=== PATIENT | male | born 1980 | race Two or more races ===

== ENCOUNTER 2020-05-09 15:55 | Inpatient (IN) ==
[2020-05-09] MEDS ORDERED: LEVSIN/MAALOX/LIDOC VISC PO ONE (17:05)
[2020-05-09 17:07] LABS: BASOPHILS # (AUTO) 0.1 X10^3/uL (0.0-0.1); EOSINOPHILS # (AUTO) 0.3 x10^3/uL (0.0-0.2); MONOCYTES # (AUTO) 0.4 x10^3/uL (0.3-0.8); NEUTROPHILS % (AUTO) 63.4 % (42.0-75.0)
[2020-05-09] MEDS ORDERED: PROTONIX TAB 40 MG PO ONE ×2 (17:11→17:25)
[2020-05-09 17:15] LABS: ALBUMIN 3.6 g/dL (3.4-5.0); ALKALINE PHOSPHATASE 150 Units/L (46-116); AMYLASE 196 Units/L (25-115); BLOOD UREA NITROGEN 12 mg/dL (7-18); CALCIUM 8.1 mg/dL (8.5-10.1); CARBON DIOXIDE 16.4 mmol/L (21-32); CHLORIDE 94 mmol/L (98-107); COR NA(FOR HYPERGLY) 138 mmol/L (136-145); CREATININE 0.78 mg/dL (0.70-1.30); SODIUM 130 mmol/L (136-145); TOTAL PROTEIN 7.6 g/dL (6.4-8.2); eGFR NON BLACK RACES > 60 (>60)
--- NOTE | 2020-05-09 17:15 | DR.ABDMALE ---
HPI Time seen Time Seen by Provider: 05/09/20 17:00 PCP Primary Care Physician: NFD Complaint Chief Complaint Doctors Comments: A 40 y/o male presenting with c/o epigastric pain onset about 3 hrs. SEAMLESS [employer] RO[employer] in the ED. It was spontaneous and without radiation. There is noassociated nausea or vomiting. Chief Complaint:: PT. C/O EPIGASTRIC PAIN AND NAUSEA. ONSET OF 3 HOURS AGO. COVID-19 Coronavirus risk:travel/contact w/high risk person: No Has patient experienced Coronavirus symptoms: No Reviewed Nurses Notes Review: Yes Mode of arrival Mode of Arrival: Ambulatory Timing Onset of Chief Complaint: 05/09/20 Duration Duration: Constant How lon Duration: Hours Location Location: Epigastric Quality Quality: Colicky and Sharp Context History of: None Modifying factors Worsening Factors: Nothing Improving Factors: Nothing Associated signs and symptoms Associated Signs and Symptoms: None PMH PMH Past Medical History: No Past Surgical History: No Surgical History: No History Family History History of Family Medical Conditions: No Social History Does patient currently use any type of tobacco product: No Have you used tobacco products in the last 12 months: No Type of Tobacco Use: None Does any household member use tobacco: No Alcohol Use: Occasionally Lives With: Family Lives Where: Home Travel Risk Coronavirus risk:travel/contact w/high risk person: No Has patient experienced Coronavirus symptoms: No Infectious screening In the last 2 months have you had wt loss of >10#?: NO Have you had fever, night sweats or hemotysis?: No Have you traveled outside the country in the last 6 months?: No Isolation: Standard ROS Review of Systems Constitutional: No Symptoms Reported Eyes: No Symptoms Reported ENTM: No Symptoms Reported Respiratoy: No Symptoms Reported Cardiovascular: No Symptoms Reported Gastrointestinal/Abdominal: Abdominal Pain (epigastric) Genitourinary: No Symptoms Reported Neurological: No Symptoms Reported Musculoskeletal: No Symptoms Reported Integumentary: No Symptoms Reported Hematologic/Lymphatic: No Symptoms Reported Endocrine: No Symptoms Reported Psychiatric: No Symptoms Reported PE Vital Signs Vital Signs: Temp Pulse Resp BP Pulse Ox 05/09/20 18:00 79 18 99 05/09/20 17:56 18 05/09/20 17:28 17 05/09/20 17:00 79 18 131/71 98 05/09/20 16:00 98.2 F 81 17 134/72 95 General Limitations: No Limitations General Appearance: Alert and In No Apparent Distress Head Head Exam: Normal Inspection, Atraumatic and Normocephalic Eyes Eye exam: Normal Appearance and EOMI ENT ENT Exam: Normal Exam, Normal Oropharynx, Normal External Ear Exam and Mucous Membranes Moist Neck Neck Exam: Normal Inspection, Full ROM and Trachea Midline Chest Chest Inspection: Normal Inspection and Symmetric Chest Wall Rise Respiratory Respiratory Exam: Normal Lung Sounds Bilat Cardiovascular Cardiovascular Exam: Regular Rate, Normal Rhythm, Normal Heart Sounds, +S1 and +S2 Abdominal Exam Abdominal Exam: Normal Inspection, Normal Bowel Sounds, Soft and Tenderness; negative Distention, Guarding, Rebound, Rigidity, Dimnished Bowel Sounds, Hyperactive Bowel Sounds, Hypoactive Bowel Sounds, Organomegaly, Trauma, Incision, Ascites, Mass, Bruit, Pulsatile Mass and Hernia Abdominal Tenderness: Epigastrium Rectal Rectal Exam: Deferred Back Back Exam: Normal Inspection and Full ROM Extremeties Extremities Exam: Normal Inspection and Full ROM Exam: Male: Deferred Neurologic Neurological Exam: Alert and Oriented X3 Psychiatric Psychiatric Exam: Normal Affect and Normal Mood Skin Skin Exam: Dry and Normal Color COURSE Reevaluation 1st: Improved Education/Counseling Education/Counseling: Patient, Education and Counseling Educated On: Treatment, Diagnosis, Prognosis and Needs for Follow Up ROR Labs Reviewed Laboratory Results Reviewed?: Yes Result Diagrams: 05/09/20 16:49 05/09/20 16:49 Laboratory: WBC 8.3 X10^3/uL (3.6-10.0) 05/09/20 16:49 RBC 4.77 X10^6/uL (4.7-6.0) 05/09/20 16:49 Hgb 15.0 g/dL (13.5-18.0) 05/09/20 16:49 Hct 42.8 % (42.0-54.0) 05/09/20 16:49 MCV 89.6 fL (80.0-100.0) 05/09/20 16:49 MCH 31.4 pg (27.0-34.0) 05/09/20 16:49 MCHC 35.0 g/dL (33.0-35.0) 05/09/20 16:49 RDW 13.4 % (11.6-16.5) 05/09/20 16:49 Plt Count 189 X10^3/uL (150.0-450.0) 05/09/20 16:49 MPV 9.3 fL (7.4-11.0) 05/09/20 16:49 Neut % (Auto) 63.4 % (42.0-75.0) 05/09/20 16:49 Lymph % (Auto) 27.6 % (21.0-51.0) 05/09/20 16:49 [place] % (Auto) 4.7 % (0.0-13.0) 05/09/20 16:49 Eos % (Auto) 3.3 % (0.9-2.9) H 05/09/20 16:49 Baso % (Auto) 1.0 % (0.2-1.0) 05/09/20 16:49 Neut # (Auto) 5.2 x10^3/uL (2.2-4.8) H 05/09/20 16:49 Lymph # (Auto) 2.3 X10^3/uL (1.3-2.9) 05/09/20 16:49 [place] # (Auto) 0.4 x10^3/uL (0.3-0.8) 05/09/20 16:49 Eos # (Auto) 0.3 x10^3/uL (0.0-0.2) H 05/09/20 16:49 Baso # (Auto) 0.1 X10^3/uL (0.0-0.1) 05/09/20 16:49 Absolute Nucleated RBC 0.1 /100WBC 05/09/20 16:49 Sodium 130 mmol/L (136-145) L 05/09/20 16:49 Corrected Sodium 138 mmol/L (136-145) 05/09/20 16:49 Potassium 3.7 mmol/L (3.5-5.1) 05/09/20 16:49 Chloride 94 mmol/L (98-107) L 05/09/20 16:49 Carbon Dioxide 16.4 mmol/L (21-32) L 05/09/20 16:49 BUN 12 mg/dL (7-18) 05/09/20 16:49 Creatinine 0.78 mg/dL (0.70-1.30) 05/09/20 16:49 Est GFR (MDRD) Af Amer > 60 (>60) 05/09/20 16:49 Est GFR (MDRD) Non-Af > 60 (>60) 05/09/20 16:49 Glucose 415 mg/dL (65-99) H 05/09/20 16:49 Calcium 8.1 mg/dL (8.5-10.1) L 05/09/20 16:49 Corrected Calcium TNP 05/09/20 16:49 Total Bilirubin 0.70 mg/dL (0.2-1.0) 05/09/20 16:49 AST 33.6 Units/L (15-37) 05/09/20 16:49 ALT 32 Units/L (12-78) 05/09/20 16:49 Alkaline Phosphatase 150 Units/L (46-116) H 05/09/20 16:49 Total Protein 7.6 g/dL (6.4-8.2) 05/09/20 16:49 Albumin 3.6 g/dL (3.4-5.0) 05/09/20 16:49 Globulin 4.0 g/dL (2.5-4.5) 05/09/20 16:49 Albumin/Globulin Ratio 0.9 Ratio (1.1-2.1) L 05/09/20 16:49 Amylase 196 Units/L (25-115) H 05/09/20 16:49 Lipase 1782 Units/L (73-393) H 05/09/20 16:49 Specimen Type Random urine 05/09/20 17:43 Urine Color Yellow (YELLOW) 05/09/20 17:43 Urine Appearance Clear (CLEAR) 05/09/20 17:43 Urine pH 7.0 (5.0 - 8.0) 05/09/20 17:43 Ur Specific [place] 1.010 (1.000-1.030) 05/09/20 17:43 Urine Protein Negative (NEGATIVE) 05/09/20 17:43 Urine Glucose (UA) 4+ (NEGATIVE) 05/09/20 17:43 Urine Ketones 1+ (NEGATIVE) 05/09/20 17:43 Urine Occult Blood Negative (NEGATIVE) 05/09/20 17:43 Urine Nitrite Negative (NEGATIVE) 05/09/20 17:43 Urine Bilirubin Negative (NEGATIVE) 05/09/20 17:43 Urine Urobilinogen Normal (NORMAL) 05/09/20 17:43 Ur Leukocyte Esterase Negative (NEGATIVE) 05/09/20 17:43 Urine RBC 0-2 /HPF (0-3) 05/09/20 17:43 Urine WBC None seen /HPF (0-5) 05/09/20 17:43 Ur Squamous Epith Cells Rare /HPF (NEGATIVE) 05/09/20 17:43 Amorphous Sediment Trace /HPF (NEGATIVE) 05/09/20 17:43 Urine Bacteria Negative /HPF (NEGATIVE) 05/09/20 17:43 Ur Culture Indicated? No/not indicated 05/09/20 17:43 Opioid Opioid Risk Tool Age (Roberto box if 16-45): Yes History of Preadolescent Sexual Abuse: No Total: 1 Total Score Risk Category: Low Risk Copyright: Juvenal MOSQUERA predicting aberrant behaviors Diagnosis Discharge Problem: Acute hyponatremia Acute pancreatitis Qualifiers: Pancreatitis type: other Acute pancreatitis complication: unspecified Qualified Code(s): K85.80 - Other acute pancreatitis without necrosis or infection ADDITIONAL NOTES Additional Notes Additional Notes: Name: CHUCK CURRY : 1980 Sex: M Location: ER Order Number(s): [id number] Procedure(s):ABDOMEN/PELVIS WITH CON Ordering Physician: JULIA BARBER Primary Care: Brittany CEE Service Date: 05/09/20 Service Time: 1729 CT abdomen and pelvis with contrast Indication: Epigastric pain with nausea. TECHNIQUE Helical images through the abdomen and pelvis after IV and oral contrast. Coronal and sagittal reformats provided. FINDINGS Limited images through the lower chest demonstrate no acute abnormality. Review of bone windows demonstrate no destructive osseous lesion. Abdomen: The liver is mildly low in attenuation. The gallbladder, spleen, adrenal glands and kidneys demonstrate no acute abnormality. Vasculature is normal. Appendix is normal. Colon is normal. There is mild stranding about the pancreas which seems mildly prominent. Minimal stranding about the duodenum which is otherwise normal noted. Pelvis: Urinary bladder and rectum are normal. Prostate gland is normal IMPRESSION 1. Acute pancreatitis favored, based on mild peripancreatic stranding, particularly near the head of the pancreas. 2. Mild stranding about the duodenum is likely reactive to the pancreas process, but duodenitis not entirely excluded 3. No other acute abnormality Electronically signed by: DAVIN ROGER (May 09, 2020 20:17:58)
[2020-05-09 17:20] LABS: LIPASE 1782 Units/L (73-393)
[2020-05-09] MEDS ORDERED: LEVSIN/MAALOX/LIDOC VISC ONE (17:25)
[2020-05-09 17:28] LABS: EOSINOPHILS % (AUTO) 3.3 % (0.9-2.9); HEMATOCRIT 42.8 % (42.0-54.0); LYMPHOCYTES # (AUTO) 2.3 X10^3/uL (1.3-2.9); LYMPHOCYTES % (AUTO) 27.6 % (21.0-51.0); MEAN CORPUSCULAR HEMOGLOBIN 31.4 pg (27.0-34.0); MEAN CORPUSCULAR VOLUME 89.6 fL (80.0-100.0); MEAN PLATELET VOLUME 9.3 fL (7.4-11.0); MONOCYTES % (AUTO) 4.7 % (0.0-13.0); NEUTROPHILS # (AUTO) 5.2 x10^3/uL (2.2-4.8); PLATELET COUNT 189 X10^3/uL (150.0-450.0); RED BLOOD COUNT 4.77 X10^6/uL (4.7-6.0); RED CELL DISTRIBUTION WIDTH 13.4 % (11.6-16.5); WHITE BLOOD COUNT 8.3 X10^3/uL (3.6-10.0)
[2020-05-09] MEDS ORDERED: NS 1000 ML 1,000 ML IV ONE (17:48)
[2020-05-09] MEDS ORDERED: TORADOL 30 MG VIAL IVP ONE (17:48)
[2020-05-09] MEDS ORDERED: TORADOL 30 MG VIAL ONE (17:50)
[2020-05-09] MEDS ORDERED: NS 1000 ML 1,000 ML ONE ×2 (17:50→22:29)
[2020-05-09 18:10] LABS: ALANINE AMINOTRANSFERASE 32 Units/L (12-78)
[2020-05-09 18:21] LABS: BILIRUBIN,URINE NEGATIVE (NEGATIVE); BLOOD/HEMOGLOBIN,URINE NEGATIVE (NEGATIVE); GLUCOSE, URINE 4+ (NEGATIVE); KETONES,URINE 1+ (NEGATIVE); LEUKOCYTE ESTERASE ,URINE NEGATIVE (NEGATIVE); NITRITES,URINE NEGATIVE (NEGATIVE); PROTEIN,URINE NEGATIVE (NEGATIVE); UROBILINOGEN,URINE NORMAL (NORMAL)
[2020-05-09 18:30] LABS: AMORPHOUS SEDIMENT,UR TRACE /HPF (NEGATIVE); APPEARANCE,URINE CLEAR (CLEAR); BACTERIA,URINE NEGATIVE /HPF (NEGATIVE); COLOR,URINE YELLOW (YELLOW); RBC,URINE 0-2 /HPF (0-3); SQUAMOUS EPITHELIAL CELL,UR RARE /HPF (NEGATIVE)
[2020-05-09 18:52] LABS: ASPARTATE AMINO TRANSFERASE 33.6 Units/L (15-37)
--- NOTE | 2020-05-09 20:19 | CT ---
CT abdomen and pelvis with contrastIndication: Epigastric pain with nausea.TECHNIQUEHelical images through the abdomen and pelvis after IV and oral contrast. Coronal and sagittal reformats provided.FINDINGSLimited images through the lower chest demonstrate no acute abnormality. Review of bone windows demonstrate no destructive osseous lesion.Abdomen: The liver is mildly low in attenuation. The gallbladder, spleen, adrenal glands and kidneys demonstrate no acute abnormality. Vasculature is normal. Appendix is normal. Colon is normal.There is mild stranding about the pancreas which seems mildly prominent. Minimal stranding about the duodenum which is otherwise normal noted.Pelvis: Urinary bladder and rectum are normal. Prostate gland is normalIMPRESSION1. Acute pancreatitis favored, based on mild peripancreatic stranding, particularly near the head of the pancreas.2. Mild stranding about the duodenum is likely reactive to the pancreas process, but duodenitis not entirely excluded3. No other acute abnormalityElectronically signed by: DAVIN ROGER (May 09, 2020 20:17:58)
[2020-05-09] MEDS ORDERED: ZOFRAN INJ 4 MG VIAL IVP PRN (21:55)
[2020-05-09] MEDS: NS 1000 ML 1,000 ML IV SCH (22:31)
[2020-05-09 23:18] VITALS: BMI 34.9
[2020-05-10] MEDS: NS 1000 ML 1,000 ML IV SCH ×3 (05:35→22:40)
[2020-05-10 06:18] LABS: ALANINE AMINOTRANSFERASE 33 Units/L (12-78); ALBUMIN 3.1 g/dL (3.4-5.0); ALKALINE PHOSPHATASE 113 Units/L (46-116); AMYLASE 204 Units/L (25-115); ASPARTATE AMINO TRANSFERASE < 6 Units/L (15-37); BLOOD UREA NITROGEN 10 mg/dL (7-18); CALCIUM 7.9 mg/dL (8.5-10.1); CHLORIDE 101 mmol/L (98-107); COR CA(FOR HYPOALB) 8.6 mg/dL (8.5-10.1); COR NA(FOR HYPERGLY) 139 mmol/L (136-145); CREATININE 0.72 mg/dL (0.70-1.30); LIPASE 1319 Units/L (73-393); SODIUM 135 mmol/L (136-145); TOTAL PROTEIN 6.4 g/dL (6.4-8.2); eGFR NON BLACK RACES > 60 (>60)
[2020-05-10] MEDS: PEPCID 20 MG IV PREMIX* 20 MG/50 ML BAG IV SCH (09:57)
[2020-05-10] MEDS: PROTONIX INJ 40 MG VIAL IVP SCH (09:57)
[2020-05-10 10:58] LABS: CHOL/HDL RATIO 8.6 (0.0-5.0)
--- NOTE | 2020-05-10 11:44 | DR.H&P ---
H&P - History & Physical for Day of: H&P Date: 05/09/20 - Chief Complaint Chief Complaint: EPIGASTRIC PAIN, NAUSEA - History of Present Illness History of Present Illness: IS A 40 YEAR OLD MALE WHO PRESENTED TO THE ER WITH COMPLAINTS OF EPIGASTRIC PAIN AND NAUSEA. 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 THERE IS NO RADIATION OF PAIN. PATIENT DENIES VOMITING. PAIN IS DESCRIBED SHARP AND IS RATED 7/10. HE DENIES PAST MEDICAL HISTORY. ON ARRIVAL TO THE ER, VITALS WERE 98.2-81-17-95%-134/72. LABS WERE OBTAINED. ABNORMAL LAB VALUES INCLUDE THE FOLLOWING: SODIUM 130, CHLORIDE 94, CARBON DIOXIDE 16.4, GLUCOSE 415, CALCIUM 8.1, ALK PHOS 150, AMYLASE 196, LIPASE 1782. A URINALYSIS WAS OBTAINED AND REVEALED: WBC NONE SEEN, RBC 0-2, BACTERIA NEGATIVE, LEUKOCYTES NEGATIVE, KETONES 1+, GLUCOSE 4+. AN ABDOMEN/PEL VIS CT WITH CONTRAST WAS OBTAINED AND REVEALED: 1. Acute pancreatitis favored, based on mild peripancreatic stranding, particularly near the head of the pancreas.2. Mild stranding about the duodenum is likely reactive to the pancreas process, but duodenitis not entirely excluded 3. No other acute abnormality. HE WAS GIVEN TORADOL 30MG IV X 1, GI COCKTAIL 30ML PO X 1, PROTONIX 40MG PO X 1, AND A NORMAL SALINE BOLUS. HE WAS ADMITTED TO THE HOSPITAL FOR FURTHER EVALUATION AND TREATMENT OF ACUTE PANCREATITIS, ACUTE HYPONATREMIA, AND ABDOMINAL PAIN. HE WAS STARTED ON NORMAL SALINE AT 125ML/HR, PROTONIX 40MG IV DAILY, ZOFRAN 4MG IV Q4H PRN, DILAUDID 2MG IV Q4H PRN, AND PEPCID 20MG IV DAILY. HE WAS HELD NPO. WE PLAN TO CONSULT WITH , CUT OFF SAW OPERATOR METAL. WE WILL OBTAIN A FASTING LIPID PANEL AND A GALLBLADDER ULTRASOUND. OTHERWISE, WE WILL FOLLOW UP WITH AM LABS AND CONTINUE TO MONITOR. - Past Surgical History Surgical History: No History - Social History Does patient currently use any type of tobacco product: No Have you used tobacco products in the last 12 months: No Type of Tobacco Use: None Does any household member use tobacco: No Alcohol Use: Occasionally Drug Use: None - Medications Home Medications: No Known Drug Allergies Allergy (Verified 05/09/20 16:07) CONTINUE taking the following medications NK 05/09/20 [History] - Review of Systems Constitutional: No Symptoms Reported Eyes: No Symptoms Reported ENT: No Symptoms Reported Respiratory: No Symptoms Reported Cardiovascular: No Symptoms Reported Gastrointestinal: See HPI, Nausea, Abdominal Pain Genitourinary: No Symptoms Reported Musculoskeletal: No Symptoms Reported Skin: No Symptoms Reported Neurological: Weakness - Physical Exam Vital Signs: Temperature 99.0 F Pulse Rate [Apical] 67 Pulse Rate 50 Respiratory Rate 20 Blood Pressure [Right Arm] 109/51 Blood Pressure 118/72 O2 Sat by Pulse Oximetry 98 Oriented: Normal Eyes: Normal Ear: Normal Nose: Normal Throat: Normal Respiratory: Diminished Throughout Cardiovascular: Normal : Normal Auscultation: Bowel Sounds: Normal Palpation: Normal Tenderness: Epigastric, Moderate Skin: Normal Musculoskeletal: Normal Psychiatric: Normal Mood Description: Calm Affect: Normal Speech Pattern: Clear - Assessment/Plan (1) Acute pancreatitis Qualifiers: Pancreatitis type: other Acute pancreatitis complication: unspecified Qualified Code(s): K85.80 - Other acute pancreatitis without necrosis or infection Status: Acute (2) Acute hyponatremia Status: Acute (3) Abdominal pain Qualifiers: Abdominal location: epigastric Qualified Code(s): R10.13 - Epigastric pain Status: Acute - Allergies Allergies/Adverse Reactions: Allergies Allergy/AdvReac Type Severity Reaction Status Date / Time No Known Drug Allergies Allergy Verified 05/09/20 16:07
[2020-05-10] MEDS: HumuLIN R SUBCUT PRN ×2 (12:25→17:06)
--- NOTE | 2020-05-10 13:02 | US ---
HISTORY: Abdominal pain.Study: Right upper quadrant abdominal ultrasoundComparison: None.Technique: Multiple wisdom scale and color flow Doppler images of the right upper quadrant were obtained.Findings:The liver is echogenic/fatty in appearance. No focal intraparenchymal mass or intrahepatic biliary ductal dilatation can be observed. [The gallbladder fails to demonstrate evidence for cholelithiasis or layering sludge]. The common bile duct is unremarkable measuring 7 mm. [No pericholecystic fluid or gallbladder wall thickening can be observed]. The CBD measures [within normal limits]. The right kidney appears normal in size without focal parenchymal mass or nephrolithiasis. The right kidney measurers 11 x 6 x 7 cm. No hydronephrosis or perirenal fluid can be observed. The [pancreatic head and body are unremarkable. The pancreatic tail] is largely obscured by overlying bowel gas. No ascites or loculated fluid collection is appreciated on this examination.IMPRESSION:Liver is diffusely echogenic/fatty in appearance. Please correlate with LFTs. Unremarkable gallbladder.No other right upper quadrant sonographic abnormalities are identified. No ascites is appreciated.Electronically signed by: ALBERT FLORES III (May 10, 2020 13:01:35)
[2020-05-10] MEDS ORDERED: DIPRIVAN VIAL 20 ML ONE ×2 (13:27→13:43)
[2020-05-10] MEDS: SNACK - Diabetic Appropriate PO SCH (20:02)
[2020-05-11] MEDS: NS 1000 ML 1,000 ML IV SCH ×3 (05:33→22:03)
[2020-05-11] MEDS: HumuLIN R SUBCUT PRN (05:34)
[2020-05-11 06:03] LABS: BASOPHILS % (AUTO) 0.2 % (0.2-1.0); EOSINOPHILS # (AUTO) 0.3 x10^3/uL (0.0-0.2); EOSINOPHILS % (AUTO) 3.2 % (0.9-2.9); HEMATOCRIT 42.6 % (42.0-54.0); HEMOGLOBIN 14.9 g/dL (13.5-18.0); LYMPHOCYTES # (AUTO) 2.7 X10^3/uL (1.3-2.9); LYMPHOCYTES % (AUTO) 32.7 % (21.0-51.0); MEAN CORPUSCULAR HEMOGLOBIN 31.4 pg (27.0-34.0); MEAN CORPUSCULAR HGB CONC 34.9 g/dL (33.0-35.0); MEAN CORPUSCULAR VOLUME 89.9 fL (80.0-100.0); MEAN PLATELET VOLUME 8.8 fL (7.4-11.0); MONOCYTES # (AUTO) 0.4 x10^3/uL (0.3-0.8); MONOCYTES % (AUTO) 4.5 % (0.0-13.0); NEUTROPHILS # (AUTO) 4.9 x10^3/uL (2.2-4.8); NEUTROPHILS % (AUTO) 59.4 % (42.0-75.0); PLATELET COUNT 190 X10^3/uL (150.0-450.0); RED BLOOD COUNT 4.74 X10^6/uL (4.7-6.0); RED CELL DISTRIBUTION WIDTH 13.5 % (11.6-16.5); WHITE BLOOD COUNT 8.2 X10^3/uL (3.6-10.0)
[2020-05-11 06:19] LABS: ALANINE AMINOTRANSFERASE 40 Units/L (12-78); ALBUMIN 2.9 g/dL (3.4-5.0); ALKALINE PHOSPHATASE 102 Units/L (46-116); AMYLASE 105 Units/L (25-115); ASPARTATE AMINO TRANSFERASE 24 Units/L (15-37); BLOOD UREA NITROGEN 7 mg/dL (7-18); CALCIUM 8.3 mg/dL (8.5-10.1); CARBON DIOXIDE 26.6 mmol/L (21-32); CHLORIDE 105 mmol/L (98-107); COR CA(FOR HYPOALB) 9.2 mg/dL (8.5-10.1); COR NA(FOR HYPERGLY) 141 mmol/L (136-145); LIPASE 461 Units/L (73-393); SODIUM 139 mmol/L (136-145); TOTAL PROTEIN 6.3 g/dL (6.4-8.2); eGFR NON BLACK RACES > 60 (>60)
[2020-05-11] MEDS ORDERED: MICRO K EXTEN CAP 10 MEQ PO PRN (06:44)
[2020-05-11] MEDS ORDERED: POTASSIUM CHL 60 MEQ/NS 0.45% 500 ML IV PRN (06:44)
[2020-05-11] MEDS ORDERED: POTASSIUM CHLORIDE LIQ 20 MEQ UDC PO PRN (06:44)
[2020-05-11] MEDS ORDERED: K-RIDER 10 MEQ/NS 100 ML 10 MEQ/100 ML BAG IV PRN (06:44)
[2020-05-11] MEDS ORDERED: POTASSIUM CHL 40 MEQ/NS 0.45% 500 ML IV PRN (06:44)
[2020-05-11] MEDS ORDERED: KLOR-CON PO PRN (06:44)
[2020-05-11] MEDS: K-DUR TAB 20 MEQ PO PRN (07:21)
[2020-05-11] MEDS: PEPCID 20 MG IV PREMIX* 20 MG/50 ML BAG IV SCH (09:07)
[2020-05-11] MEDS: PROTONIX INJ 40 MG VIAL IVP SCH (09:07)
[2020-05-11] MEDS: TRICOR TAB 145 MG PO SCH (14:27)
[2020-05-11] MEDS: SNACK - Diabetic Appropriate PO SCH (20:00)
[2020-05-11] MEDS: CRESTOR TAB 10 MG PO SCH (20:40)
[2020-05-12] MEDS: NS 1000 ML 1,000 ML IV SCH ×4 (05:54→22:00)
[2020-05-12 06:06] LABS: ALANINE AMINOTRANSFERASE 40 Units/L (12-78); ALBUMIN 2.9 g/dL (3.4-5.0); ALKALINE PHOSPHATASE 94 Units/L (46-116); ASPARTATE AMINO TRANSFERASE 31 Units/L (15-37); BASOPHILS % (AUTO) 0.2 % (0.2-1.0); BLOOD UREA NITROGEN 7 mg/dL (7-18); CALCIUM 8.2 mg/dL (8.5-10.1); CHLORIDE 105 mmol/L (98-107); COR CA(FOR HYPOALB) 9.1 mg/dL (8.5-10.1); COR NA(FOR HYPERGLY) 140 mmol/L (136-145); CREATININE 0.78 mg/dL (0.70-1.30); EOSINOPHILS # (AUTO) 0.3 x10^3/uL (0.0-0.2); HEMATOCRIT 41.3 % (42.0-54.0); HEMOGLOBIN 14.4 g/dL (13.5-18.0); LYMPHOCYTES # (AUTO) 3.2 X10^3/uL (1.3-2.9); LYMPHOCYTES % (AUTO) 47.5 % (21.0-51.0); MEAN CORPUSCULAR HEMOGLOBIN 31.2 pg (27.0-34.0); MEAN CORPUSCULAR HGB CONC 34.8 g/dL (33.0-35.0); MEAN CORPUSCULAR VOLUME 89.8 fL (80.0-100.0); MONOCYTES # (AUTO) 0.3 x10^3/uL (0.3-0.8); MONOCYTES % (AUTO) 4.9 % (0.0-13.0); NEUTROPHILS # (AUTO) 2.9 x10^3/uL (2.2-4.8); NEUTROPHILS % (AUTO) 43.4 % (42.0-75.0); PLATELET COUNT 190 X10^3/uL (150.0-450.0); RED CELL DISTRIBUTION WIDTH 13.2 % (11.6-16.5); SODIUM 139 mmol/L (136-145); TOTAL PROTEIN 6.3 g/dL (6.4-8.2); WHITE BLOOD COUNT 6.7 X10^3/uL (3.6-10.0); eGFR NON BLACK RACES > 60 (>60)
[2020-05-12] MEDS: PEPCID 20 MG IV PREMIX* 20 MG/50 ML BAG IV SCH (08:56)
[2020-05-12] MEDS: PROTONIX INJ 40 MG VIAL IVP SCH (08:56)
[2020-05-12] MEDS: TRICOR TAB 145 MG PO SCH (08:56)
[2020-05-12] MEDS: K-DUR TAB 20 MEQ PO PRN (08:57)
[2020-05-12] MEDS: SNACK - Diabetic Appropriate PO SCH (20:00)
[2020-05-12] MEDS: CRESTOR TAB 10 MG PO SCH (21:00)
[2020-05-13] MEDS: NS 1000 ML 1,000 ML IV SCH ×2 (05:52→14:57)
[2020-05-13 06:31] LABS: BASOPHILS % (AUTO) 0.3 % (0.2-1.0); EOSINOPHILS # (AUTO) 0.3 x10^3/uL (0.0-0.2); EOSINOPHILS % (AUTO) 3.6 % (0.9-2.9); HEMATOCRIT 40.4 % (42.0-54.0); HEMOGLOBIN 14.3 g/dL (13.5-18.0); MEAN CORPUSCULAR HEMOGLOBIN 31.3 pg (27.0-34.0); MEAN CORPUSCULAR HGB CONC 35.3 g/dL (33.0-35.0); MEAN CORPUSCULAR VOLUME 88.6 fL (80.0-100.0); MEAN PLATELET VOLUME 8.4 fL (7.4-11.0); MONOCYTES # (AUTO) 0.4 x10^3/uL (0.3-0.8); MONOCYTES % (AUTO) 4.6 % (0.0-13.0); NEUTROPHILS % (AUTO) 52.5 % (42.0-75.0); PLATELET COUNT 200 X10^3/uL (150.0-450.0); RED BLOOD COUNT 4.56 X10^6/uL (4.7-6.0); WHITE BLOOD COUNT 7.7 X10^3/uL (3.6-10.0)
[2020-05-13 06:55] LABS: ALANINE AMINOTRANSFERASE 43 Units/L (12-78); ALKALINE PHOSPHATASE 97 Units/L (46-116); ASPARTATE AMINO TRANSFERASE 34 Units/L (15-37); BLOOD UREA NITROGEN 7 mg/dL (7-18); CALCIUM 8.2 mg/dL (8.5-10.1); CHLORIDE 105 mmol/L (98-107); CREATININE 0.77 mg/dL (0.70-1.30); SODIUM 139 mmol/L (136-145); TOTAL PROTEIN 6.6 g/dL (6.4-8.2); eGFR NON BLACK RACES > 60 (>60)
[2020-05-13] MEDS: K-DUR TAB 20 MEQ PO PRN ×2 (08:32→20:04)
[2020-05-13] MEDS: TRICOR TAB 145 MG PO SCH (08:32)
[2020-05-13] MEDS: PEPCID 20 MG IV PREMIX* 20 MG/50 ML BAG IV SCH (08:38)
[2020-05-13] MEDS: PROTONIX INJ 40 MG VIAL IVP SCH (08:39)
[2020-05-13] MEDS: DILAUDID INJ IVP PRN (15:10)
[2020-05-13] MEDS: CRESTOR TAB 10 MG PO SCH (20:02)
[2020-05-13] MEDS: SNACK - Diabetic Appropriate PO SCH (20:03)
[2020-05-14] MEDS: NS 1000 ML 1,000 ML IV SCH ×2 (01:41→06:33)
[2020-05-14 06:27] LABS: BASOPHILS % (AUTO) 0.3 % (0.2-1.0); EOSINOPHILS # (AUTO) 0.3 x10^3/uL (0.0-0.2); EOSINOPHILS % (AUTO) 3.7 % (0.9-2.9); HEMATOCRIT 41.3 % (42.0-54.0); HEMOGLOBIN 14.6 g/dL (13.5-18.0); LYMPHOCYTES # (AUTO) 2.3 X10^3/uL (1.3-2.9); LYMPHOCYTES % (AUTO) 28.7 % (21.0-51.0); MEAN CORPUSCULAR HEMOGLOBIN 31.6 pg (27.0-34.0); MEAN CORPUSCULAR HGB CONC 35.4 g/dL (33.0-35.0); MEAN CORPUSCULAR VOLUME 89.3 fL (80.0-100.0); MEAN PLATELET VOLUME 8.7 fL (7.4-11.0); MONOCYTES # (AUTO) 0.4 x10^3/uL (0.3-0.8); MONOCYTES % (AUTO) 5.5 % (0.0-13.0); NEUTROPHILS % (AUTO) 61.8 % (42.0-75.0); PLATELET COUNT 207 X10^3/uL (150.0-450.0); RED BLOOD COUNT 4.62 X10^6/uL (4.7-6.0); RED CELL DISTRIBUTION WIDTH 12.7 % (11.6-16.5); WHITE BLOOD COUNT 8.1 X10^3/uL (3.6-10.0)
[2020-05-14 06:49] LABS: ALANINE AMINOTRANSFERASE 46 Units/L (12-78); ALBUMIN 3.1 g/dL (3.4-5.0); ALKALINE PHOSPHATASE 117 Units/L (46-116); AMYLASE 83 Units/L (25-115); ASPARTATE AMINO TRANSFERASE 33 Units/L (15-37); BLOOD UREA NITROGEN 7 mg/dL (7-18); CALCIUM 8.5 mg/dL (8.5-10.1); CARBON DIOXIDE 23.8 mmol/L (21-32); CHLORIDE 104 mmol/L (98-107); COR CA(FOR HYPOALB) 9.2 mg/dL (8.5-10.1); CREATININE 0.73 mg/dL (0.70-1.30); LIPASE 236 Units/L (73-393); SODIUM 138 mmol/L (136-145); TOTAL PROTEIN 6.7 g/dL (6.4-8.2); eGFR NON BLACK RACES > 60 (>60)
[2020-05-14] MEDS: DILAUDID INJ IVP PRN (07:04)
--- NOTE | 2020-05-14 08:46 | PCM.PROG ---
Progress Note - Progress Note for Day of Date of Exam: 05/11/20 - Subjective Subjective: IS BEING TREATED FOR ACUTE PANCREATITIS, ACUTE HYPONATREMIA, AND ABDOMINAL PAIN. TODAY, HE IS ALERT AND ORIENTED, LYING IN BED ON MORNING ROUNDS. HE CONTINUES WITH COMPLAINTS OF ABDOMINAL PAIN AND NAUSEA THIS MORNING. AN EGD WAS PERFORMED YESTERDAY AND REVEALED ANTRAL GASTRITIS AND MILD DISTAL ESOPHAGITIS. ON EXAMINATION TODAY, HEART IS REGULAR IN RATE AND RHYTHM. BILATERAL LUNGS ARE CLEAR TO AUSCULTATION. ABDOMEN IS ROUND, SOFT, AND NOTED WITH EPIGASTRIC TENDERNESS. NORMAL BOWEL SOUNDS ARE NOTED IN ALL QUADRANTS. HIS VITALS THIS MORNING ARE: 98.1-65-18-97%-84/53. LABS WERE O BTAINED. ABNORMAL LAB VALUES INCLUDE THE FOLLOWING: GLUCOSE 194, CALCIUM 8.3, TOTAL PROTEIN 6.3, ALBUMIN 2.9, LIPASE 461. A GALLBLADDER ULTRASOUND WAS OBTAINED YESTERDAY AND REVEALED: Liver is diffusely echogenic/fatty in appearance. Please correlate with LFTs. Unremarkable gallbladder. No other right upper quadrant sonographic abnormalities are identified. No ascites is appreciated. HE IS CURRENTLY RECEIVING NORMAL SALINE AT 125ML/HR, PROTONIX 40MG IV DAILY, ZOFRAN 4MG IV Q4H PRN, DILAUDID 2MG IV Q4H PRN, AND PEPCID 20MG IV DAILY. TODAY, WE WILL START TRICOR 145MG PO DAILY, CRESTOR 5MG PO HS, AND THE POTASSIUM AND MAGNESIUM PROTOCOLS. OTHERWISE, WE WILL FOLLOW UP WITH AM LABS AND CONTINUE TO MONITOR. - Past Medical Family Social History Past Med/Fam/Surg Hx: No changes since H&P Allergies: Allergies No Known Drug Allergies Allergy (Verified 05/09/20 16:07) - Review of Systems ROS: No change since H&P - Vital Signs and I&O's Vital Signs: Temperature 98.6 F Pulse Rate [Apical] 68 Pulse Rate 84 Respiratory Rate 20 Blood Pressure [Right Arm] 105/55 Blood Pressure 118/72 O2 Sat by Pulse Oximetry 100 Intake and Output: Intake & Output 05/11/20 05/12/20 05/13/20 05/14/20 11:59 11:59 11:59 11:59 Intake Total 1000 / 1000 1875 / 1875 2330 / 2330 2500 / 2500 Output Total 3250 / 3250 650 / 650 3825 / 3825 2825 / 2825 Balance -2250 / -2250 1225 / 1225 -1495 / -1495 -325 / -325 - Physical Exam Oriented: Normal Eyes: Normal Ear: Normal Nose: Normal Throat: Normal Respiratory: Normal Cardiovascular: Normal : Normal Auscultation: Bowel Sounds: Normal Palpation: Normal Tenderness: Epigastric, Mild Skin: Normal Musculoskeletal: Normal Psychiatric: Normal Mood Description: Calm Affect: Normal Speech Pattern: Clear, Appropriate - Laboratory and Diagnostics Result Diagrams: 05/14/20 05:48 05/14/20 05:48 Labs: Laboratory WBC 8.1 X10^3/uL (3.6-10.0) 05/14/20 05:48 RBC 4.62 X10^6/uL (4.7-6.0) L 05/14/20 05:48 Hgb 14.6 g/dL (13.5-18.0) 05/14/20 05:48 Hct 41.3 % (42.0-54.0) L 05/14/20 05:48 MCV 89.3 fL (80.0-100.0) 05/14/20 05:48 MCH 31.6 pg (27.0-34.0) 05/14/20 05:48 MCHC 35.4 g/dL (33.0-35.0) H 05/14/20 05:48 RDW 12.7 % (11.6-16.5) 05/14/20 05:48 Plt Count 207 X10^3/uL (150.0-450.0) 05/14/20 05:48 MPV 8.7 fL (7.4-11.0) 05/14/20 05:48 Neut % (Auto) 61.8 % (42.0-75.0) 05/14/20 05:48 Lymph % (Auto) 28.7 % (21.0-51.0) 05/14/20 05:48 [place] % (Auto) 5.5 % (0.0-13.0) 05/14/20 05:48 Eos % (Auto) 3.7 % (0.9-2.9) H 05/14/20 05:48 Baso % (Auto) 0.3 % (0.2-1.0) 05/14/20 05:48 Neut # (Auto) 5.0 x10^3/uL (2.2-4.8) H 05/14/20 05:48 Lymph # (Auto) 2.3 X10^3/uL (1.3-2.9) 05/14/20 05:48 [place] # (Auto) 0.4 x10^3/uL (0.3-0.8) 05/14/20 05:48 Eos # (Auto) 0.3 x10^3/uL (0.0-0.2) H 05/14/20 05:48 Baso # (Auto) 0.0 X10^3/uL (0.0-0.1) 05/14/20 05:48 Absolute Nucleated RBC 0.0 /100WBC 05/14/20 05:48 Sodium 138 mmol/L (136-145) 05/14/20 05:48 Corrected Sodium TNP 05/14/20 05:48 Potassium 3.3 mmol/L (3.5-5.1) L 05/14/20 05:48 Chloride 104 mmol/L (98-107) 05/14/20 05:48 Carbon Dioxide 23.8 mmol/L (21-32) 05/14/20 05:48 BUN 7 mg/dL (7-18) 05/14/20 05:48 Creatinine 0.73 mg/dL (0.70-1.30) 05/14/20 05:48 Est GFR (MDRD) Af Amer > 60 (>60) 05/14/20 05:48 Est GFR (MDRD) Non-Af > 60 (>60) 05/14/20 05:48 Glucose 98 mg/dL (65-99) 05/14/20 05:48 POC Glucose (mg/dL) 95 mg/dL (65-99) 05/14/20 05:48 Hemoglobin A1c 11.0 % 05/10/20 05:20 Calcium 8.5 mg/dL (8.5-10.1) 05/14/20 05:48 Corrected Calcium 9.2 mg/dL (8.5-10.1) 05/14/20 05:48 Total Bilirubin 0.90 mg/dL (0.2-1.0) 05/14/20 05:48 AST 33 Units/L (15-37) 05/14/20 05:48 ALT 46 Units/L (12-78) 05/14/20 05:48 Alkaline Phosphatase 117 Units/L (46-116) H 05/14/20 05:48 Total Protein 6.7 g/dL (6.4-8.2) 05/14/20 05:48 Albumin 3.1 g/dL (3.4-5.0) L 05/14/20 05:48 Globulin 3.6 g/dL (2.5-4.5) 05/14/20 05:48 Albumin/Globulin Ratio 0.9 Ratio (1.1-2.1) L 05/14/20 05:48 Triglycerides 800 mg/dL (0-150) H 05/10/20 05:20 Cholesterol 214 mg/dL (0-200) H 05/10/20 05:20 LDL Cholesterol, Calc 29 mg/dL (0-100) 05/10/20 05:20 HDL Cholesterol 25 mg/dL (40-60) L 05/10/20 05:20 Cholesterol/HDL Ratio 8.6 (0.0-5.0) H 05/10/20 05:20 Amylase 83 Units/L (25-115) 05/14/20 05:48 Lipase 236 Units/L (73-393) 05/14/20 05:48 Specimen Type Random urine 05/09/20 17:43 Urine Color Yellow (YELLOW) 05/09/20 17:43 Urine Appearance Clear (CLEAR) 05/09/20 17:43 Urine pH 7.0 (5.0 - 8.0) 05/09/20 17:43 Ur Specific [place] 1.010 (1.000-1.030) 05/09/20 17:43 Urine Protein Negative (NEGATIVE) 05/09/20 17:43 Urine Glucose (UA) 4+ (NEGATIVE) 05/09/20 17:43 Urine Ketones 1+ (NEGATIVE) 05/09/20 17:43 Urine Occult Blood Negative (NEGATIVE) 05/09/20 17:43 Urine Nitrite Negative (NEGATIVE) 05/09/20 17:43 Urine Bilirubin Negative (NEGATIVE) 05/09/20 17:43 Urine Urobilinogen Normal (NORMAL) 05/09/20 17:43 Ur Leukocyte Esterase Negative (NEGATIVE) 05/09/20 17:43 Urine RBC 0-2 /HPF (0-3) 05/09/20 17:43 Urine WBC None seen /HPF (0-5) 05/09/20 17:43 Ur Squamous Epith Cells Rare /HPF (NEGATIVE) 05/09/20 17:43 Amorphous Sediment Trace /HPF (NEGATIVE) 05/09/20 17:43 Urine Bacteria Negative /HPF (NEGATIVE) 05/09/20 17:43 Ur Culture Indicated? No/not indicated 05/09/20 17:43 Tissue Pathology To follow 05/10/20 14:46 - Plan (1) Acute pancreatitis Status: Acute Qualifiers: Pancreatitis type: other Acute pancreatitis complication: unspecified Qualified Code(s): K85.80 - Other acute pancreatitis without necrosis or infection (2) Acute hyponatremia Status: Acute (3) Abdominal pain Status: Acute Qualifiers: Abdominal location: epigastric Qualified Code(s): R10.13 - Epigastric pain (4) Elevated triglycerides with high cholesterol Status: Acute Plan: TRICOR 145MG PO DAILY, CRESTOR 5MG PO HS, CONTINUE TO MONITOR
--- NOTE | 2020-05-14 08:50 | PCM.PROG ---
Progress Note - Progress Note for Day of Date of Exam: 05/12/20 - Subjective Subjective: IS BEING TREATED FOR ACUTE PANCREATITIS, ACUTE HYPONATREMIA, ABDOMINAL PAIN, AND ELEVATED TRIGLYCERIDES. EGD REVEALED ANTRAL GASTRITIS AND MILD DISTAL ESOPHAGITIS. TODAY, HE IS ALERT AND ORIENTED, LYING IN BED ON MORNING ROUNDS. HE CONTINUES WITH COMPLAINTS OF ABDOMINAL PAIN AND NAUSEA THIS MORNING. ON EXAMINATION TODAY, HEART IS REGULAR IN RATE AND RHYTHM. BILATERAL LUNGS ARE CLEAR TO AUSCULTATION. ABDOMEN IS ROUND, SOFT, AND NOTED WITH EPIGASTRIC TENDERNESS. NORMAL BOWEL SOUNDS ARE NOTED IN ALL QUADRANTS. HIS VITALS THIS MORNING ARE: 97.6-55-20-98%-80/45. LABS WERE OBTAINED. ABNORMAL LAB VALUES INCLUDE THE FOLLOWING: RBC 4.60, HCT 41.3, GLUCOSE 146, CALCIUM 8.2, TOTAL PROTEIN 6.3, ALBUMIN 2.9. HE IS CURRENTLY RECEIVING NORMAL SALINE AT 125ML/HR, PROTONIX 40MG IV DAILY, TRICOR 145MG PO DAILY, CRESTOR 5MG PO HS, THE POTASSIUM AND MAGNESIUM PROTOCOLS, ZOFRAN 4MG IV Q4H PRN, DILAUDID 2MG IV Q4H PRN, AND PEPCID 20MG IV DAILY. WE WILL CONTINUE WITH CURRENT PLAN OF CARE TODAY. OTHERWISE, WE WILL FOLLOW UP WITH AM LABS AND CONTINUE TO MONITOR. - Past Medical Family Social History Past Med/Fam/Surg Hx: No changes since H&P Allergies: Allergies No Known Drug Allergies Allergy (Verified 05/09/20 16:07) - Review of Systems ROS: No change since H&P - Vital Signs and I&O's Vital Signs: Temperature 98.6 F Pulse Rate [Apical] 68 Pulse Rate 84 Respiratory Rate 20 Blood Pressure [Right Arm] 105/55 Blood Pressure 118/72 O2 Sat by Pulse Oximetry 100 Intake and Output: Intake & Output 05/11/20 05/12/20 05/13/20 05/14/20 11:59 11:59 11:59 11:59 Intake Total 1000 / 1000 1875 / 1875 2330 / 2330 2500 / 2500 Output Total 3250 / 3250 650 / 650 3825 / 3825 2825 / 2825 Balance -2250 / -2250 1225 / 1225 -1495 / -1495 -325 / -325 - Physical Exam Oriented: Normal Eyes: Normal Ear: Normal Nose: Normal Throat: Normal Respiratory: Normal Cardiovascular: Normal : Normal Auscultation: Bowel Sounds: Normal Palpation: Normal Tenderness: Epigastric, Mild Skin: Normal Musculoskeletal: Normal Psychiatric: Normal Mood Description: Calm Affect: Normal Speech Pattern: Clear, Appropriate - Laboratory and Diagnostics Result Diagrams: 05/14/20 05:48 05/14/20 05:48 Labs: Laboratory WBC 8.1 X10^3/uL (3.6-10.0) 05/14/20 05:48 RBC 4.62 X10^6/uL (4.7-6.0) L 05/14/20 05:48 Hgb 14.6 g/dL (13.5-18.0) 05/14/20 05:48 Hct 41.3 % (42.0-54.0) L 05/14/20 05:48 MCV 89.3 fL (80.0-100.0) 05/14/20 05:48 MCH 31.6 pg (27.0-34.0) 05/14/20 05:48 MCHC 35.4 g/dL (33.0-35.0) H 05/14/20 05:48 RDW 12.7 % (11.6-16.5) 05/14/20 05:48 Plt Count 207 X10^3/uL (150.0-450.0) 05/14/20 05:48 MPV 8.7 fL (7.4-11.0) 05/14/20 05:48 Neut % (Auto) 61.8 % (42.0-75.0) 05/14/20 05:48 Lymph % (Auto) 28.7 % (21.0-51.0) 05/14/20 05:48 [place] % (Auto) 5.5 % (0.0-13.0) 05/14/20 05:48 Eos % (Auto) 3.7 % (0.9-2.9) H 05/14/20 05:48 Baso % (Auto) 0.3 % (0.2-1.0) 05/14/20 05:48 Neut # (Auto) 5.0 x10^3/uL (2.2-4.8) H 05/14/20 05:48 Lymph # (Auto) 2.3 X10^3/uL (1.3-2.9) 05/14/20 05:48 [place] # (Auto) 0.4 x10^3/uL (0.3-0.8) 05/14/20 05:48 Eos # (Auto) 0.3 x10^3/uL (0.0-0.2) H 05/14/20 05:48 Baso # (Auto) 0.0 X10^3/uL (0.0-0.1) 05/14/20 05:48 Absolute Nucleated RBC 0.0 /100WBC 05/14/20 05:48 Sodium 138 mmol/L (136-145) 05/14/20 05:48 Corrected Sodium TNP 05/14/20 05:48 Potassium 3.3 mmol/L (3.5-5.1) L 05/14/20 05:48 Chloride 104 mmol/L (98-107) 05/14/20 05:48 Carbon Dioxide 23.8 mmol/L (21-32) 05/14/20 05:48 BUN 7 mg/dL (7-18) 05/14/20 05:48 Creatinine 0.73 mg/dL (0.70-1.30) 05/14/20 05:48 Est GFR (MDRD) Af Amer > 60 (>60) 05/14/20 05:48 Est GFR (MDRD) Non-Af > 60 (>60) 05/14/20 05:48 Glucose 98 mg/dL (65-99) 05/14/20 05:48 POC Glucose (mg/dL) 95 mg/dL (65-99) 05/14/20 05:48 Hemoglobin A1c 11.0 % 05/10/20 05:20 Calcium 8.5 mg/dL (8.5-10.1) 05/14/20 05:48 Corrected Calcium 9.2 mg/dL (8.5-10.1) 05/14/20 05:48 Total Bilirubin 0.90 mg/dL (0.2-1.0) 05/14/20 05:48 AST 33 Units/L (15-37) 05/14/20 05:48 ALT 46 Units/L (12-78) 05/14/20 05:48 Alkaline Phosphatase 117 Units/L (46-116) H 05/14/20 05:48 Total Protein 6.7 g/dL (6.4-8.2) 05/14/20 05:48 Albumin 3.1 g/dL (3.4-5.0) L 05/14/20 05:48 Globulin 3.6 g/dL (2.5-4.5) 05/14/20 05:48 Albumin/Globulin Ratio 0.9 Ratio (1.1-2.1) L 05/14/20 05:48 Triglycerides 800 mg/dL (0-150) H 05/10/20 05:20 Cholesterol 214 mg/dL (0-200) H 05/10/20 05:20 LDL Cholesterol, Calc 29 mg/dL (0-100) 05/10/20 05:20 HDL Cholesterol 25 mg/dL (40-60) L 05/10/20 05:20 Cholesterol/HDL Ratio 8.6 (0.0-5.0) H 05/10/20 05:20 Amylase 83 Units/L (25-115) 05/14/20 05:48 Lipase 236 Units/L (73-393) 05/14/20 05:48 Specimen Type Random urine 05/09/20 17:43 Urine Color Yellow (YELLOW) 05/09/20 17:43 Urine Appearance Clear (CLEAR) 05/09/20 17:43 Urine pH 7.0 (5.0 - 8.0) 05/09/20 17:43 Ur Specific [place] 1.010 (1.000-1.030) 05/09/20 17:43 Urine Protein Negative (NEGATIVE) 05/09/20 17:43 Urine Glucose (UA) 4+ (NEGATIVE) 05/09/20 17:43 Urine Ketones 1+ (NEGATIVE) 05/09/20 17:43 Urine Occult Blood Negative (NEGATIVE) 05/09/20 17:43 Urine Nitrite Negative (NEGATIVE) 05/09/20 17:43 Urine Bilirubin Negative (NEGATIVE) 05/09/20 17:43 Urine Urobilinogen Normal (NORMAL) 05/09/20 17:43 Ur Leukocyte Esterase Negative (NEGATIVE) 05/09/20 17:43 Urine RBC 0-2 /HPF (0-3) 05/09/20 17:43 Urine WBC None seen /HPF (0-5) 05/09/20 17:43 Ur Squamous Epith Cells Rare /HPF (NEGATIVE) 05/09/20 17:43 Amorphous Sediment Trace /HPF (NEGATIVE) 05/09/20 17:43 Urine Bacteria Negative /HPF (NEGATIVE) 05/09/20 17:43 Ur Culture Indicated? No/not indicated 05/09/20 17:43 Tissue Pathology To follow 05/10/20 14:46 - Plan (1) Acute pancreatitis Status: Acute Qualifiers: Pancreatitis type: other Acute pancreatitis complication: unspecified Qualified Code(s): K85.80 - Other acute pancreatitis without necrosis or infection Plan: NS AT 125ML/HR, PROTONIX 40MG IV DAILY, ZOFRAN 4MG IV Q4H PRN, DILAUDID 2MG IV Q4H PRN, AND PEPCID 20MG IV DAILY. (2) Acute hyponatremia Status: Acute (3) Abdominal pain Status: Acute Qualifiers: Abdominal location: epigastric Qualified Code(s): R10.13 - Epigastric pain (4) Elevated triglycerides with high cholesterol Status: Acute Plan: TRICOR 145MG PO DAILY, CRESTOR 5MG PO HS, CONTINUE TO MONITOR
--- NOTE | 2020-05-14 08:52 | PCM.PROG ---
Progress Note - Progress Note for Day of Date of Exam: 05/13/20 - Subjective Subjective: IS BEING TREATED FOR ACUTE PANCREATITIS, ACUTE HYPONATREMIA, ABDOMINAL PAIN, AND ELEVATED TRIGLYCERIDES. EGD REVEALED ANTRAL GASTRITIS AND MILD DISTAL ESOPHAGITIS. TODAY, HE IS ALERT AND ORIENTED, LYING IN BED ON MORNING ROUNDS. HE CONTINUES WITH COMPLAINTS OF MILD, INTERMITTENT AB DOMINAL PAIN, BUT REPORTS IMPROVEMENT IN SYMPTOMS SINCE ADMISSION. ON EXAMINATION TODAY, HEART IS REGULAR IN RATE AND RHYTHM. BILATERAL LUNGS ARE CLEAR TO AUSCULTATION. ABDOMEN IS ROUND, SOFT, AND NOTED WITH MILD EPIGASTRIC TENDERNESS. NORMAL BOWEL SOUNDS ARE NOTED IN ALL QUADRANTS. HIS VITALS THIS MORNING ARE: 97.6-55-18-95%-102/61. LABS WERE OBTAINED. ABNORMAL LAB VALUES INCLUDE THE FOLLOWING: RBC 4.56, HCT 40.4, GLUCOSE 107, CALCIUM 8.2, ALBUMIN 3.0. HE IS CURRENTLY RECEIVING NORMAL SALINE AT 125ML/HR, PROTONIX 40MG IV DAILY, TRICOR 145MG PO DAILY, CRESTOR 5MG PO HS, THE POTASSIUM AND MAGNESIUM PROTOCOLS, ZOFRAN 4MG IV Q4H PRN, DILAUDID 2MG IV Q4H PRN, AND PEPCID 20MG IV DAILY. WE WILL CONTINUE WITH CURRENT PLAN OF CARE TODAY. OTHERWISE, WE WILL FOLLOW UP WITH AM LABS AND CONTINUE TO MONITOR. - Past Medical Family Social History Past Med/Fam/Surg Hx: No changes since H&P Allergies: Allergies No Known Drug Allergies Allergy (Verified 05/09/20 16:07) - Review of Systems ROS: No change since H&P - Vital Signs and I&O's Vital Signs: Temperature 98.6 F Pulse Rate [Apical] 68 Pulse Rate 84 Respiratory Rate 20 Blood Pressure [Right Arm] 105/55 Blood Pressure 118/72 O2 Sat by Pulse Oximetry 100 Intake and Output: Intake & Output 05/11/20 05/12/20 05/13/20 05/14/20 11:59 11:59 11:59 11:59 Intake Total 1000 / 1000 1875 / 1875 2330 / 2330 2500 / 2500 Output Total 3250 / 3250 650 / 650 3825 / 3825 2825 / 2825 Balance -2250 / -2250 1225 / 1225 -1495 / -1495 -325 / -325 - Physical Exam Oriented: Normal Eyes: Normal Ear: Normal Nose: Normal Throat: Normal Respiratory: Normal Cardiovascular: Normal : Normal Auscultation: Bowel Sounds: Normal Palpation: Normal Tenderness: Epigastric, Mild Skin: Normal Musculoskeletal: Normal Psychiatric: Normal Mood Description: Calm Affect: Normal Speech Pattern: Clear, Appropriate - Laboratory and Diagnostics Result Diagrams: 05/14/20 05:48 05/14/20 05:48 Labs: Laboratory WBC 8.1 X10^3/uL (3.6-10.0) 05/14/20 05:48 RBC 4.62 X10^6/uL (4.7-6.0) L 05/14/20 05:48 Hgb 14.6 g/dL (13.5-18.0) 05/14/20 05:48 Hct 41.3 % (42.0-54.0) L 05/14/20 05:48 MCV 89.3 fL (80.0-100.0) 05/14/20 05:48 MCH 31.6 pg (27.0-34.0) 05/14/20 05:48 MCHC 35.4 g/dL (33.0-35.0) H 05/14/20 05:48 RDW 12.7 % (11.6-16.5) 05/14/20 05:48 Plt Count 207 X10^3/uL (150.0-450.0) 05/14/20 05:48 MPV 8.7 fL (7.4-11.0) 05/14/20 05:48 Neut % (Auto) 61.8 % (42.0-75.0) 05/14/20 05:48 Lymph % (Auto) 28.7 % (21.0-51.0) 05/14/20 05:48 [place] % (Auto) 5.5 % (0.0-13.0) 05/14/20 05:48 Eos % (Auto) 3.7 % (0.9-2.9) H 05/14/20 05:48 Baso % (Auto) 0.3 % (0.2-1.0) 05/14/20 05:48 Neut # (Auto) 5.0 x10^3/uL (2.2-4.8) H 05/14/20 05:48 Lymph # (Auto) 2.3 X10^3/uL (1.3-2.9) 05/14/20 05:48 [place] # (Auto) 0.4 x10^3/uL (0.3-0.8) 05/14/20 05:48 Eos # (Auto) 0.3 x10^3/uL (0.0-0.2) H 05/14/20 05:48 Baso # (Auto) 0.0 X10^3/uL (0.0-0.1) 05/14/20 05:48 Absolute Nucleated RBC 0.0 /100WBC 05/14/20 05:48 Sodium 138 mmol/L (136-145) 05/14/20 05:48 Corrected Sodium TNP 05/14/20 05:48 Potassium 3.3 mmol/L (3.5-5.1) L 05/14/20 05:48 Chloride 104 mmol/L (98-107) 05/14/20 05:48 Carbon Dioxide 23.8 mmol/L (21-32) 05/14/20 05:48 BUN 7 mg/dL (7-18) 05/14/20 05:48 Creatinine 0.73 mg/dL (0.70-1.30) 05/14/20 05:48 Est GFR (MDRD) Af Amer > 60 (>60) 05/14/20 05:48 Est GFR (MDRD) Non-Af > 60 (>60) 05/14/20 05:48 Glucose 98 mg/dL (65-99) 05/14/20 05:48 POC Glucose (mg/dL) 95 mg/dL (65-99) 05/14/20 05:48 Hemoglobin A1c 11.0 % 05/10/20 05:20 Calcium 8.5 mg/dL (8.5-10.1) 05/14/20 05:48 Corrected Calcium 9.2 mg/dL (8.5-10.1) 05/14/20 05:48 Total Bilirubin 0.90 mg/dL (0.2-1.0) 05/14/20 05:48 AST 33 Units/L (15-37) 05/14/20 05:48 ALT 46 Units/L (12-78) 05/14/20 05:48 Alkaline Phosphatase 117 Units/L (46-116) H 05/14/20 05:48 Total Protein 6.7 g/dL (6.4-8.2) 05/14/20 05:48 Albumin 3.1 g/dL (3.4-5.0) L 05/14/20 05:48 Globulin 3.6 g/dL (2.5-4.5) 05/14/20 05:48 Albumin/Globulin Ratio 0.9 Ratio (1.1-2.1) L 05/14/20 05:48 Triglycerides 800 mg/dL (0-150) H 05/10/20 05:20 Cholesterol 214 mg/dL (0-200) H 05/10/20 05:20 LDL Cholesterol, Calc 29 mg/dL (0-100) 05/10/20 05:20 HDL Cholesterol 25 mg/dL (40-60) L 05/10/20 05:20 Cholesterol/HDL Ratio 8.6 (0.0-5.0) H 05/10/20 05:20 Amylase 83 Units/L (25-115) 05/14/20 05:48 Lipase 236 Units/L (73-393) 05/14/20 05:48 Specimen Type Random urine 05/09/20 17:43 Urine Color Yellow (YELLOW) 05/09/20 17:43 Urine Appearance Clear (CLEAR) 05/09/20 17:43 Urine pH 7.0 (5.0 - 8.0) 05/09/20 17:43 Ur Specific [place] 1.010 (1.000-1.030) 05/09/20 17:43 Urine Protein Negative (NEGATIVE) 05/09/20 17:43 Urine Glucose (UA) 4+ (NEGATIVE) 05/09/20 17:43 Urine Ketones 1+ (NEGATIVE) 05/09/20 17:43 Urine Occult Blood Negative (NEGATIVE) 05/09/20 17:43 Urine Nitrite Negative (NEGATIVE) 05/09/20 17:43 Urine Bilirubin Negative (NEGATIVE) 05/09/20 17:43 Urine Urobilinogen Normal (NORMAL) 05/09/20 17:43 Ur Leukocyte Esterase Negative (NEGATIVE) 05/09/20 17:43 Urine RBC 0-2 /HPF (0-3) 05/09/20 17:43 Urine WBC None seen /HPF (0-5) 05/09/20 17:43 Ur Squamous Epith Cells Rare /HPF (NEGATIVE) 05/09/20 17:43 Amorphous Sediment Trace /HPF (NEGATIVE) 05/09/20 17:43 Urine Bacteria Negative /HPF (NEGATIVE) 05/09/20 17:43 Ur Culture Indicated? No/not indicated 05/09/20 17:43 Tissue Pathology To follow 05/10/20 14:46 - Plan (1) Acute pancreatitis Status: Acute Qualifiers: Pancreatitis type: other Acute pancreatitis complication: unspecified Qualified Code(s): K85.80 - Other acute pancreatitis without necrosis or infection Plan: NS AT 125ML/HR, PROTONIX 40MG IV DAILY, ZOFRAN 4MG IV Q4H PRN, DILAUDID 2MG IV Q4H PRN, AND PEPCID 20MG IV DAILY. (2) Acute hyponatremia Status: Acute (3) Abdominal pain Status: Acute Qualifiers: Abdominal location: epigastric Qualified Code(s): R10.13 - Epigastric pain (4) Elevated triglycerides with high cholesterol Status: Acute Plan: TRICOR 145MG PO DAILY, CRESTOR 5MG PO HS, CONTINUE TO MONITOR
[2020-05-14] MEDS: PEPCID 20 MG IV PREMIX* 20 MG/50 ML BAG IV SCH (08:59)
[2020-05-14] MEDS: TRICOR TAB 145 MG PO SCH (09:00)
[2020-05-14] MEDS: PROTONIX INJ 40 MG VIAL IVP SCH (09:00)
[2020-05-14] MEDS ORDERED: TORADOL 30 MG VIAL IVP ONE (10:42)
--- NOTE | 2020-05-14 11:11 | RAD ---
HISTORYRIGHT FOOT PAIN AND SWELLINGSTUDYFOOT x-ray three views, RIGHTCOMPARISONNoneFINDINGSBunion formation and mild hallux valgus deformity. Minimal arthritic changes are seen in the 1st MTP joint. No arthritic changes are seen in the other toes. No calcaneal plantar spur is seen. Probable soft tissue swelling is seen in the forefoot and toes. No fracture or dislocation is seen.IMPRESSIONSoft tissue swelling is seen. Mild arthritic changes are seen in the 1st MTP joint with bunion formation and mild hallux valgus deformity.Electronically signed by: Ej Beltre (May 14, 2020 11:10:16)
[2020-05-14 13:13] VITALS: BP 99/54
== END 2020-05-14 15:25 | disposition home or self-care (01) | DRG 439 ==
LOC: ER 15:58 → MED/SURG 21:55
PROVIDERS: ADMIT Internal Medicine; ATTEND Internal Medicine